=== PATIENT | female | born 1940 | race Caucasian/White ===

== ENCOUNTER 2019-02-12 15:36 | Inpatient (IN) | payer MEDICARE, OTHER ==
[2019-02-12 15:52] LABS: ADD MAN DIFF? NO
[2019-02-12 15:58] LABS: WHITE BLOOD COUNT 13.8 10^3/ul (4.8-10.8)
[2019-02-12 15:58] LABS: BASOPHILS % 0.2 % (0.0-2.0); EOSINOPHILS # 0.1 10^3/ul (0.0-0.5); EOSINOPHILS % 0.9 % (0.0-7.0); HEMATOCRIT 39.1 % (37.0-47.0); HEMOGLOBIN 12.2 g/dl (12.0-16.0); LYMPHOCYTES # 1.9 10^3/ul (0.8-2.9); LYMPHOCYTES % 13.9 % (15.0-51.0); MEAN CORPUSCULAR HEMOGLOBIN 27.7 pg (29.0-33.0); MEAN CORPUSCULAR HGB CONC 31.2 g/dl (32.0-37.0); MEAN CORPUSCULAR VOLUME 88.9 fl (82.0-101.0); MEAN PLATELET VOLUME 10.1 fl (7.4-10.4); MONOCYTE # 0.8 10^3/ul (0.3-0.9); NEUTROPHIL # 10.8 10^3/ul (1.6-7.5); NEUTROPHILS % 78.4 % (39.0-77.0); PLATELET COUNT 410 10^3/UL (140-415)
[2019-02-12] MEDS: KETOROLAC 15 MG INJ IV (16:03)
[2019-02-12] MEDS: LORAZEPAM 2 MG INJ IV (16:03)
[2019-02-12] MEDS: SOD CHLORIDE 0.9% 1,000 ML IV (16:04)
[2019-02-12 16:12] LABS: ADD UMIC NO; UR ASCORBIC ACID NEGATIVE (NEGATIVE); UR BACTERIA FEW /HPF (NONE SEEN); UR BILIRUBIN (Dip) NEGATIVE (NEGATIVE); UR BLOOD (Dip) NEGATIVE (NEGATIVE); UR CLARITY SLIGHTLY CLOUDY (CLEAR); UR COLOR AMBER (YELLOW); UR GLUCOSE (Dip) NEGATIVE (NEGATIVE); UR KETONES (Dip) NEGATIVE (NEGATIVE); UR LEUKOCYTE ESTERASE (Dip) NEGATIVE Leu/ul (NEGATIVE); UR NITRITE (Dip) NEGATIVE (NEGATIVE); UR RBC 1 /HPF (0-5); UR SPECIFIC GRAVITY (Dip) 1.017 (1.003-1.030); UR TOTAL PROTEIN (Dip) NEGATIVE (NEGATIVE); UR UROBILINOGEN (Dip) 2+ mg/dL (NEGATIVE); UR WBC 4 /HPF (0-5)
[2019-02-12 16:16] LABS: ALANINE AMINOTRANSFERASE 45 IU/L (13-69); ALBUMIN 3.5 g/dl (3.3-4.9); ALBUMIN/GLOBULIN RATIO 1.09; ALKALINE PHOSPHATASE 111 IU/L (42-121); ANION GAP 10 (5-13); ASPARTATE AMINO TRANSFERASE 65 IU/L (15-46); BILIRUBIN,INDIRECT 0.6 mg/dl (0-1.1); BILIRUBIN,TOTAL 0.6 mg/dl (0.2-1.3); BLOOD UREA NITROGEN 38 mg/dl (7-20); CALCIUM 8.6 mg/dl (8.4-10.2); CARBON DIOXIDE 30 mmol/L (21-31); CHLORIDE 98 mmol/L (97-110); CREATININE 0.98 mg/dl (0.44-1.00); GLUCOSE 174 mg/dl (70-220); LIPASE 206 U/L (23-300); POTASSIUM 3.6 mmol/L (3.5-5.1); SODIUM 138 mmol/L (135-144); TOTAL PROTEIN 6.7 g/dl (6.1-8.1)
[2019-02-12 16:18] LABS: INR 0.98; PROTIME 13.1 Sec (11.9-14.9)
[2019-02-12 16:19] LABS: PARTIAL THROMBOPLASTIN TIME 27.4 Sec (23.0-35.0)
[2019-02-12 16:25] LABS: B-TYPE NATRIURETIC PEPTIDE 2840 PG/ML (0-450)
[2019-02-12 16:27] LABS: TROPONIN-I < 0.012 ng/ml (0.000-0.120)
[2019-02-12] MEDS: ASPIRIN 81 MG TAB PO (18:17)
[2019-02-12] MEDS: ASPIRIN 300 MG SUPP PR (18:20)
[2019-02-12] MEDS ORDERED: traMADol 50 MG TAB PO (18:30)
[2019-02-12] MEDS ORDERED: NACL 0.9% 3 ML SYG IV (18:30)
[2019-02-12] MEDS ORDERED: DOCUSATE SODIUM 100 MG CAP PO (18:30)
[2019-02-12] MEDS ORDERED: NITROGLYCERIN (SL) 0.4 MG TAB SL (18:30)
[2019-02-12] MEDS ORDERED: ONDANSETRON 4 MG INJ IV (18:30)
[2019-02-12 19:29] LABS: HEMOGLOBIN A1C 5.3 % (0-5.9)
[2019-02-12 19:40] LABS: CREATINE KINASE 757 IU/L (23-200)
[2019-02-12 19:52] LABS: CK INDEX 1.6; TROPONIN-I < 0.012 ng/ml (0.000-0.120)
[2019-02-12] MEDS: QUETIAPINE 25 MG TAB PO (23:01)
[2019-02-12] MEDS: ESCITALOPRAM 10 MG TAB PO (23:01)
[2019-02-12] MEDS: FAMOTIDINE 20 MG TAB PO (23:03)
[2019-02-13 01:32] LABS: CREATINE KINASE 593 IU/L (23-200)
[2019-02-13 01:45] LABS: CK INDEX 1.4; CK-MB 8.21 ng/ml (0.0-2.4); TROPONIN-I < 0.012 ng/ml (0.000-0.120)
[2019-02-13 05:37] LABS: ADD MAN DIFF? NO
[2019-02-13 05:51] LABS: WHITE BLOOD COUNT 9.8 10^3/ul (4.8-10.8)
[2019-02-13 05:51] LABS: BASOPHILS % 0.3 % (0.0-2.0); EOSINOPHILS # 0.2 10^3/ul (0.0-0.5); EOSINOPHILS % 2.3 % (0.0-7.0); HEMOGLOBIN 9.7 g/dl (12.0-16.0); LYMPHOCYTES # 2.1 10^3/ul (0.8-2.9); LYMPHOCYTES % 21.4 % (15.0-51.0); MEAN CORPUSCULAR HGB CONC 32.3 g/dl (32.0-37.0); MEAN CORPUSCULAR VOLUME 86.7 fl (82.0-101.0); MEAN PLATELET VOLUME 10.9 fl (7.4-10.4); MONOCYTE # 0.9 10^3/ul (0.3-0.9); NEUTROPHIL # 6.5 10^3/ul (1.6-7.5); NEUTROPHILS % 66.6 % (39.0-77.0); PLATELET COUNT 325 10^3/UL (140-415); RED BLOOD COUNT 3.46 10^6/ul (4.20-5.40); RED CELL DISTRIBUTION WIDTH 13.1 % (11.5-14.5)
[2019-02-13 06:37] LABS: ANION GAP 4 (5-13); BLOOD UREA NITROGEN 30 mg/dl (7-20); CALCIUM 7.5 mg/dl (8.4-10.2); CARBON DIOXIDE 29 mmol/L (21-31); CHLORIDE 104 mmol/L (97-110); CREATININE 0.61 mg/dl (0.44-1.00); GLUCOSE 81 mg/dl (70-220); MAGNESIUM 1.9 mg/dl (1.7-2.5); SODIUM 137 mmol/L (135-144)
[2019-02-13 06:46] LABS: POTASSIUM 2.9 mmol/L (3.5-5.1)
[2019-02-13] MEDS: ENOXAPARIN 40 MG/0.4 ML SYG SC (07:59)
[2019-02-13] MEDS: FAMOTIDINE 20 MG TAB PO (09:00)
[2019-02-13] MEDS: ARIPIPRAZOLE 5 MG TAB PO (09:00)
[2019-02-13] MEDS: ATENOLOL 50 MG TAB PO (09:00)
[2019-02-13] MEDS: POTASSIUM CHLORIDE 100 ML IVPB ×3 (09:08→13:31)
[2019-02-13] MEDS: FUROSEMIDE 20 MG INJ IV (09:09)
[2019-02-13] MEDS: D5W-0.45 NACL + KCL 20 MEQ 1,000 ML IV (10:28)
[2019-02-13] MEDS ORDERED: PENDING SANTYL ORDER FOR WOUND CARE XX (11:00)
[2019-02-13] MEDS: MAGNESIUM SULFATE 2 GM/50 ML 50 ML IVPB (11:35)
[2019-02-13 15:30] LABS: POTASSIUM 3.8 mmol/L (3.5-5.1)
[2019-02-13] MEDS ORDERED: FENTAnyl 50 MCG/ML VIAL (15:40)
[2019-02-13] MEDS ORDERED: MIDAZOLAM 1 MG/ML 2 ML INJ (15:40)
[2019-02-13] MEDS ORDERED: ROPIVACAINE 0.5 % 30 ML VIAL (15:40)
[2019-02-13] MEDS ORDERED: PHENYLephrine (100 MCG/ML) 10ML SYG ×3 (15:40→17:00)
[2019-02-13] MEDS ORDERED: CEFAZOLIN 1 GM INJ ×2 (15:40→19:07)
[2019-02-13] MEDS ORDERED: PROPOFOL 100 ML (15:40)
[2019-02-13] MEDS: ACCU-CHEK XX ×2 (17:00→21:00)
[2019-02-13] MEDS ORDERED: ALBUMIN HUMAN 5% 500 ML (17:01)
[2019-02-13] MEDS ORDERED: HETASTARCH 6% NACL 500 ML (17:01)
[2019-02-13] MEDS ORDERED: DEXAMETHASONE 4 MG/ML 5 ML INJ (17:12)
[2019-02-13] MEDS ORDERED: ONDANSETRON 4 MG INJ (17:12)
[2019-02-13] MEDS ORDERED: METOCLOPRAMIDE 10 MG INJ (17:12)
[2019-02-13] MEDS: POLYMYXIN/BACITRACIN 1L IRRIG (17:17)
[2019-02-13] MEDS ORDERED: ALBUMIN HUMAN 5% 250 ML IV (17:30)
[2019-02-13] MEDS ORDERED: FENTAnyl 50 MCG/ML VIAL IV ×2 (17:30)
[2019-02-13] MEDS ORDERED: ACETAMINOPHEN 500 MG TAB PO (17:30)
[2019-02-13] MEDS ORDERED: DIPHENHYDRAMINE 50 MG INJ IV ×3 (17:30→20:00)
[2019-02-13] MEDS ORDERED: NALOXONE (0.4 MG/ML) INJ IV ×2 (17:30→20:00)
[2019-02-13] MEDS ORDERED: HYDROmorphONE 0.5 MG/0.5 ML SYG IV ×3 (17:30→20:00)
[2019-02-13] MEDS ORDERED: HYDROmorphONE 1 MG/5 ML IV SYRINGE IV ×2 (17:30)
[2019-02-13] MEDS ORDERED: hydrALAzine 20 MG INJ IV (17:30)
[2019-02-13] MEDS ORDERED: OXYCODONE/ACETAMINOPHEN (5/325) TAB PO (17:30)
[2019-02-13] MEDS ORDERED: MEPERIDINE 25 MG INJ IV (17:30)
[2019-02-13] MEDS ORDERED: EPHEDrine 25 MG/5 ML SYG IV (17:30)
[2019-02-13] MEDS ORDERED: LABETALOL HCL 20MG INJ IV (17:30)
[2019-02-13] MEDS ORDERED: ONDANSETRON 4 MG INJ IV ×2 (17:30)
[2019-02-13] MEDS ORDERED: NALBUPHINE HCL (10 MG/1 ML) INJ IV (17:30)
[2019-02-13] MEDS ORDERED: morphine 2 MG INJ IV ×2 (17:30)
[2019-02-13] MEDS ORDERED: TRANEXAMIC ACID 1GM/100ML(PMX) 100 ML (18:54)
[2019-02-13] MEDS ORDERED: oxyCODONE 5 MG TAB PO (20:00)
[2019-02-13] MEDS ORDERED: MAGNESIUM HYDROXIDE 30ML CUP PO (20:00)
[2019-02-13] MEDS ORDERED: NACL 0.9% 3 ML SYG IV (20:00)
[2019-02-13] MEDS ORDERED: NA PHOSPHATE/BIPHOS 133 ML ENEMA PR (20:00)
[2019-02-13] MEDS ORDERED: BISACODYL 10 MG SUPP PR (20:00)
[2019-02-13] MEDS: LACTATED RINGER'S 1,000 ML IV (20:30)
[2019-02-13] MEDS: DOCUSATE SODIUM 100 MG CAP PO (20:30)
[2019-02-13] MEDS: ESCITALOPRAM 10 MG TAB PO (21:40)
[2019-02-13] MEDS: QUETIAPINE 25 MG TAB PO (21:44)
[2019-02-13] MEDS: BALSAM PERU/CASTOR OIL 60 GM TUBE TOP (21:44)
[2019-02-13] MEDS: CEFAZOLIN 2 GM/50 ML (PMX) 50 ML IVPB (21:45)
[2019-02-13] MEDS: ACETAMINOPHEN 500 MG TAB PO (23:00)
[2019-02-14] MEDS: ACCU-CHEK XX ×4 (01:00→21:02)
[2019-02-14] MEDS: PANTOPRAZOLE (EC) 40 MG TAB PO (05:54)
[2019-02-14] MEDS: CEFAZOLIN 2 GM/50 ML (PMX) 50 ML IVPB ×2 (05:54→13:35)
[2019-02-14] MEDS: ACETAMINOPHEN 500 MG TAB PO ×3 (05:55→22:00)
[2019-02-14 06:12] LABS: ADD MAN DIFF? NO
[2019-02-14 06:26] LABS: WHITE BLOOD COUNT 8.9 10^3/ul (4.8-10.8)
[2019-02-14 06:26] LABS: HEMATOCRIT 27.5 % (37.0-47.0); HEMOGLOBIN 8.7 g/dl (12.0-16.0); LYMPHOCYTES # 0.8 10^3/ul (0.8-2.9); LYMPHOCYTES % 8.6 % (15.0-51.0); MEAN CORPUSCULAR HEMOGLOBIN 27.9 pg (29.0-33.0); MEAN CORPUSCULAR HGB CONC 31.6 g/dl (32.0-37.0); MEAN CORPUSCULAR VOLUME 88.1 fl (82.0-101.0); MEAN PLATELET VOLUME 10.9 fl (7.4-10.4); MONOCYTE # 0.4 10^3/ul (0.3-0.9); NEUTROPHIL # 7.7 10^3/ul (1.6-7.5); NEUTROPHILS % 86.8 % (39.0-77.0); PLATELET COUNT 293 10^3/UL (140-415); RED BLOOD COUNT 3.12 10^6/ul (4.20-5.40); RED CELL DISTRIBUTION WIDTH 13.2 % (11.5-14.5)
[2019-02-14 06:38] LABS: ALANINE AMINOTRANSFERASE 44 IU/L (13-69); ALBUMIN 2.5 g/dl (3.3-4.9); ALBUMIN/GLOBULIN RATIO 1.08; ALKALINE PHOSPHATASE 105 IU/L (42-121); ANION GAP 6 (5-13); ASPARTATE AMINO TRANSFERASE 59 IU/L (15-46); BILIRUBIN,INDIRECT 0.6 mg/dl (0-1.1); BILIRUBIN,TOTAL 0.6 mg/dl (0.2-1.3); BLOOD UREA NITROGEN 19 mg/dl (7-20); CALCIUM 7.4 mg/dl (8.4-10.2); CARBON DIOXIDE 26 mmol/L (21-31); CHLORIDE 109 mmol/L (97-110); CREATININE 0.48 mg/dl (0.44-1.00); GLUCOSE 103 mg/dl (70-220); POTASSIUM 3.8 mmol/L (3.5-5.1); SODIUM 141 mmol/L (135-144); TOTAL PROTEIN 4.8 g/dl (6.1-8.1)
[2019-02-14 06:44] LABS: INR 1.19; PROTIME 15.2 Sec (11.9-14.9); PT RATIO 1.2
[2019-02-14] MEDS: LACTATED RINGER'S 1,000 ML IV (09:00)
[2019-02-14] MEDS: ENOXAPARIN 40 MG/0.4 ML SYG SC (09:00)
[2019-02-14] MEDS: ATENOLOL 50 MG TAB PO (09:00)
[2019-02-14] MEDS: DOCUSATE SODIUM 100 MG CAP PO ×2 (09:15→20:58)
[2019-02-14] MEDS: FAMOTIDINE 20 MG TAB PO (09:17)
[2019-02-14] MEDS: ARIPIPRAZOLE 5 MG TAB PO (09:17)
[2019-02-14] MEDS: D5W-0.45 NACL + KCL 20 MEQ 1,000 ML IV (09:18)
[2019-02-14] MEDS: BALSAM PERU/CASTOR OIL 60 GM TUBE TOP ×2 (09:18→21:02)
[2019-02-14] MEDS ORDERED: ONDANSETRON 4 MG INJ IV (20:00)
[2019-02-14] MEDS: ESCITALOPRAM 10 MG TAB PO (20:58)
[2019-02-14] MEDS: QUETIAPINE 25 MG TAB PO (21:02)
[2019-02-14] MEDS: DAKINS 0.0125%(1/40) 473 ML SOLUTION TP (21:02)
[2019-02-15] MEDS: ACCU-CHEK XX ×4 (01:00→13:43)
[2019-02-15] MEDS: ACETAMINOPHEN 500 MG TAB PO ×3 (05:50→21:37)
[2019-02-15] MEDS: PANTOPRAZOLE (EC) 40 MG TAB PO (05:51)
[2019-02-15 05:53] LABS: ADD MAN DIFF? NO
[2019-02-15 06:00] LABS: BASOPHILS % 0.1 % (0.0-2.0); EOSINOPHILS # 0.1 10^3/ul (0.0-0.5); EOSINOPHILS % 1.3 % (0.0-7.0); HEMATOCRIT 25.4 % (37.0-47.0); HEMOGLOBIN 8.1 g/dl (12.0-16.0); LYMPHOCYTES # 2.5 10^3/ul (0.8-2.9); LYMPHOCYTES % 24.1 % (15.0-51.0); MEAN CORPUSCULAR HEMOGLOBIN 28.3 pg (29.0-33.0); MEAN CORPUSCULAR HGB CONC 31.9 g/dl (32.0-37.0); MEAN CORPUSCULAR VOLUME 88.8 fl (82.0-101.0); MEAN PLATELET VOLUME 10.4 fl (7.4-10.4); MONOCYTE # 0.9 10^3/ul (0.3-0.9); MONOCYTES % 8.7 % (0.0-11.0); NEUTROPHIL # 6.8 10^3/ul (1.6-7.5); NEUTROPHILS % 65.1 % (39.0-77.0); PLATELET COUNT 288 10^3/UL (140-415); RED BLOOD COUNT 2.86 10^6/ul (4.20-5.40); RED CELL DISTRIBUTION WIDTH 13.2 % (11.5-14.5)
[2019-02-15 06:00] LABS: WHITE BLOOD COUNT 10.4 10^3/ul (4.8-10.8)
[2019-02-15 06:25] LABS: INR 1.07; PT RATIO 1.1
[2019-02-15 06:31] LABS: ANION GAP 0 (5-13); BLOOD UREA NITROGEN 21 mg/dl (7-20); CALCIUM 7.5 mg/dl (8.4-10.2); CARBON DIOXIDE 29 mmol/L (21-31); CHLORIDE 110 mmol/L (97-110); GLUCOSE 88 mg/dl (70-220); POTASSIUM 3.6 mmol/L (3.5-5.1); SODIUM 139 mmol/L (135-144)
[2019-02-15] MEDS: DOCUSATE SODIUM 100 MG CAP PO ×2 (08:53→20:19)
[2019-02-15] MEDS: FUROSEMIDE 20 MG TAB PO (08:53)
[2019-02-15] MEDS: ATENOLOL 50 MG TAB PO (08:53)
[2019-02-15] MEDS: ARIPIPRAZOLE 5 MG TAB PO (08:54)
[2019-02-15] MEDS: POTASSIUM CHLORIDE (SR) 20 MEQ TAB PO (08:54)
[2019-02-15] MEDS: FAMOTIDINE 20 MG TAB PO (08:54)
[2019-02-15] MEDS: ENOXAPARIN 40 MG/0.4 ML SYG SC ×2 (08:55→09:00)
[2019-02-15] MEDS: DAKINS 0.0125%(1/40) 473 ML SOLUTION TP ×2 (09:01→20:20)
[2019-02-15] MEDS: BALSAM PERU/CASTOR OIL 60 GM TUBE TOP ×2 (09:02→20:20)
[2019-02-15] MEDS: oxyCODONE 5 MG TAB PO (09:42)
[2019-02-15] MEDS: D5W-0.45 NACL + KCL 20 MEQ 1,000 ML IV (10:28)
[2019-02-15] MEDS: QUETIAPINE 25 MG TAB PO (20:20)
[2019-02-15] MEDS: ESCITALOPRAM 10 MG TAB PO (20:20)
[2019-02-16] MEDS: PANTOPRAZOLE (EC) 40 MG TAB PO (05:58)
[2019-02-16] MEDS: ACETAMINOPHEN 500 MG TAB PO ×3 (05:58→21:34)
[2019-02-16 06:09] LABS: ADD MAN DIFF? NO
[2019-02-16 06:15] LABS: WHITE BLOOD COUNT 10.1 10^3/ul (4.8-10.8)
[2019-02-16 06:15] LABS: BASOPHILS % 0.2 % (0.0-2.0); EOSINOPHILS # 0.4 10^3/ul (0.0-0.5); EOSINOPHILS % 3.6 % (0.0-7.0); HEMATOCRIT 28.6 % (37.0-47.0); HEMOGLOBIN 8.9 g/dl (12.0-16.0); LYMPHOCYTES # 2.9 10^3/ul (0.8-2.9); LYMPHOCYTES % 28.8 % (15.0-51.0); MEAN CORPUSCULAR HEMOGLOBIN 27.6 pg (29.0-33.0); MEAN CORPUSCULAR HGB CONC 31.1 g/dl (32.0-37.0); MEAN CORPUSCULAR VOLUME 88.5 fl (82.0-101.0); MEAN PLATELET VOLUME 10.3 fl (7.4-10.4); MONOCYTES % 9.5 % (0.0-11.0); NEUTROPHIL # 5.7 10^3/ul (1.6-7.5); NEUTROPHILS % 56.9 % (39.0-77.0); PLATELET COUNT 335 10^3/UL (140-415); RED BLOOD COUNT 3.23 10^6/ul (4.20-5.40); RED CELL DISTRIBUTION WIDTH 13.6 % (11.5-14.5)
[2019-02-16 06:31] LABS: INR 0.97
[2019-02-16 06:45] LABS: B-TYPE NATRIURETIC PEPTIDE 4690 PG/ML (0-450)
[2019-02-16 06:52] LABS: ALANINE AMINOTRANSFERASE 38 IU/L (13-69); ALBUMIN 2.3 g/dl (3.3-4.9); ALBUMIN/GLOBULIN RATIO 0.95; ALKALINE PHOSPHATASE 87 IU/L (42-121); ANION GAP 1 (5-13); ASPARTATE AMINO TRANSFERASE 30 IU/L (15-46); BILIRUBIN,INDIRECT 0.5 mg/dl (0-1.1); BILIRUBIN,TOTAL 0.5 mg/dl (0.2-1.3); BLOOD UREA NITROGEN 16 mg/dl (7-20); CALCIUM 7.4 mg/dl (8.4-10.2); CARBON DIOXIDE 30 mmol/L (21-31); CHLORIDE 108 mmol/L (97-110); CREATININE 0.46 mg/dl (0.44-1.00); GLUCOSE 82 mg/dl (70-220); MAGNESIUM 1.7 mg/dl (1.7-2.5); POTASSIUM 4.3 mmol/L (3.5-5.1); SODIUM 139 mmol/L (135-144); TOTAL PROTEIN 4.7 g/dl (6.1-8.1)
[2019-02-16] MEDS: ENOXAPARIN 40 MG/0.4 ML SYG SC (08:21)
[2019-02-16] MEDS: ARIPIPRAZOLE 5 MG TAB PO (08:21)
[2019-02-16] MEDS: FAMOTIDINE 20 MG TAB PO (08:22)
[2019-02-16] MEDS: FUROSEMIDE 20 MG TAB PO (08:22)
[2019-02-16] MEDS: DOCUSATE SODIUM 100 MG CAP PO ×2 (08:22→21:35)
[2019-02-16] MEDS: ATENOLOL 50 MG TAB PO (08:22)
[2019-02-16] MEDS: DAKINS 0.0125%(1/40) 473 ML SOLUTION TP ×2 (08:23→21:35)
[2019-02-16] MEDS: BALSAM PERU/CASTOR OIL 60 GM TUBE TOP ×2 (08:23→21:36)
[2019-02-16] MEDS: oxyCODONE 5 MG TAB PO (10:54)
[2019-02-16] MEDS: SENNA/DOCUSATE NA (8.6MG/50MG) TAB PO (13:56)
[2019-02-16] MEDS: MAGNESIUM HYDROXIDE 30ML CUP PO (17:53)
[2019-02-16] MEDS: ESCITALOPRAM 10 MG TAB PO (21:34)
[2019-02-16] MEDS: QUETIAPINE 25 MG TAB PO (21:34)
[2019-02-17 05:31] LABS: INR 0.94; PROTIME 12.7 Sec (11.9-14.9)
[2019-02-17 05:44] LABS: ANION GAP 2 (5-13); BLOOD UREA NITROGEN 13 mg/dl (7-20); CALCIUM 7.4 mg/dl (8.4-10.2); CARBON DIOXIDE 30 mmol/L (21-31); CHLORIDE 107 mmol/L (97-110); CREATININE 0.47 mg/dl (0.44-1.00); GLUCOSE 89 mg/dl (70-220); POTASSIUM 3.9 mmol/L (3.5-5.1); SODIUM 139 mmol/L (135-144)
[2019-02-17] MEDS: ACETAMINOPHEN 500 MG TAB PO ×3 (06:45→21:14)
[2019-02-17] MEDS: PANTOPRAZOLE (EC) 40 MG TAB PO (06:45)
[2019-02-17] MEDS: ARIPIPRAZOLE 5 MG TAB PO (09:00)
[2019-02-17] MEDS: FAMOTIDINE 20 MG TAB PO (09:08)
[2019-02-17] MEDS: FUROSEMIDE 20 MG TAB PO (09:08)
[2019-02-17] MEDS: ATENOLOL 50 MG TAB PO (09:09)
[2019-02-17] MEDS: DAKINS 0.0125%(1/40) 473 ML SOLUTION TP ×2 (09:09→21:12)
[2019-02-17] MEDS: BALSAM PERU/CASTOR OIL 60 GM TUBE TOP ×2 (09:10→21:12)
[2019-02-17] MEDS: ENOXAPARIN 40 MG/0.4 ML SYG SC (09:11)
[2019-02-17] MEDS: QUETIAPINE 25 MG TAB PO (21:11)
[2019-02-17] MEDS: ESCITALOPRAM 10 MG TAB PO (21:11)
[2019-02-18] MEDS: ACETAMINOPHEN 500 MG TAB PO ×3 (05:31→20:42)
[2019-02-18] MEDS: PANTOPRAZOLE (EC) 40 MG TAB PO (05:31)
[2019-02-18 06:31] LABS: INR 0.94; PROTIME 12.7 Sec (11.9-14.9)
[2019-02-18 06:54] LABS: ANION GAP 2 (5-13); BLOOD UREA NITROGEN 11 mg/dl (7-20); CALCIUM 7.8 mg/dl (8.4-10.2); CARBON DIOXIDE 34 mmol/L (21-31); CHLORIDE 103 mmol/L (97-110); CREATININE 0.46 mg/dl (0.44-1.00); GLUCOSE 72 mg/dl (70-220); POTASSIUM 4.3 mmol/L (3.5-5.1); SODIUM 139 mmol/L (135-144)
[2019-02-18] MEDS: ARIPIPRAZOLE 5 MG TAB PO (08:59)
[2019-02-18] MEDS: FAMOTIDINE 20 MG TAB PO (09:00)
[2019-02-18] MEDS: FUROSEMIDE 20 MG TAB PO (09:00)
[2019-02-18] MEDS: ATENOLOL 50 MG TAB PO (09:00)
[2019-02-18] MEDS: ENOXAPARIN 40 MG/0.4 ML SYG SC (09:01)
[2019-02-18] MEDS: DAKINS 0.0125%(1/40) 473 ML SOLUTION TP ×2 (09:05→20:42)
[2019-02-18] MEDS: BALSAM PERU/CASTOR OIL 60 GM TUBE TOP ×2 (09:05→20:42)
[2019-02-18] MEDS: QUETIAPINE 25 MG TAB PO (20:42)
[2019-02-18] MEDS: ESCITALOPRAM 10 MG TAB PO (20:42)
[2019-02-19 05:19] LABS: ADD MAN DIFF? NO
[2019-02-19 05:26] LABS: BASOPHILS % 0.3 % (0.0-2.0); EOSINOPHILS # 0.5 10^3/ul (0.0-0.5); EOSINOPHILS % 3.8 % (0.0-7.0); HEMATOCRIT 32.3 % (37.0-47.0); HEMOGLOBIN 10.4 g/dl (12.0-16.0); LYMPHOCYTES # 2.1 10^3/ul (0.8-2.9); LYMPHOCYTES % 16.6 % (15.0-51.0); MEAN CORPUSCULAR HEMOGLOBIN 27.9 pg (29.0-33.0); MEAN CORPUSCULAR HGB CONC 32.2 g/dl (32.0-37.0); MEAN CORPUSCULAR VOLUME 86.6 fl (82.0-101.0); MEAN PLATELET VOLUME 9.7 fl (7.4-10.4); MONOCYTE # 0.9 10^3/ul (0.3-0.9); MONOCYTES % 6.8 % (0.0-11.0); NEUTROPHIL # 8.9 10^3/ul (1.6-7.5); NEUTROPHILS % 71.4 % (39.0-77.0); PLATELET COUNT 458 10^3/UL (140-415); RED BLOOD COUNT 3.73 10^6/ul (4.20-5.40); RED CELL DISTRIBUTION WIDTH 13.6 % (11.5-14.5)
[2019-02-19 05:26] LABS: WHITE BLOOD COUNT 12.5 10^3/ul (4.8-10.8)
[2019-02-19 05:42] LABS: MAGNESIUM 1.8 mg/dl (1.7-2.5)
[2019-02-19 05:46] LABS: ANION GAP 4 (5-13); BLOOD UREA NITROGEN 11 mg/dl (7-20); CALCIUM 7.9 mg/dl (8.4-10.2); CARBON DIOXIDE 31 mmol/L (21-31); CHLORIDE 102 mmol/L (97-110); CREATININE 0.48 mg/dl (0.44-1.00); GLUCOSE 82 mg/dl (70-220); POTASSIUM 3.5 mmol/L (3.5-5.1); SODIUM 137 mmol/L (135-144)
[2019-02-19] MEDS: PANTOPRAZOLE (EC) 40 MG TAB PO (07:06)
[2019-02-19] MEDS: ACETAMINOPHEN 500 MG TAB PO ×3 (07:07→21:20)
[2019-02-19] MEDS: ATENOLOL 50 MG TAB PO (09:30)
[2019-02-19] MEDS: ARIPIPRAZOLE 5 MG TAB PO (09:30)
[2019-02-19] MEDS: FAMOTIDINE 20 MG TAB PO (09:30)
[2019-02-19] MEDS: FUROSEMIDE 20 MG TAB PO (09:30)
[2019-02-19] MEDS: BALSAM PERU/CASTOR OIL 60 GM TUBE TOP ×2 (09:38→20:33)
[2019-02-19] MEDS: DAKINS 0.0125%(1/40) 473 ML SOLUTION TP ×2 (09:38→20:32)
[2019-02-19] MEDS: ENOXAPARIN 40 MG/0.4 ML SYG SC (09:39)
[2019-02-19 13:07] LABS: ADD UMIC YES; UR ASCORBIC ACID NEGATIVE (NEGATIVE); UR BILIRUBIN (Dip) NEGATIVE (NEGATIVE); UR BLOOD (Dip) 1+ mg/dL (NEGATIVE); UR CLARITY CLEAR (CLEAR); UR COLOR YELLOW (YELLOW); UR GLUCOSE (Dip) NEGATIVE (NEGATIVE); UR KETONES (Dip) NEGATIVE (NEGATIVE); UR LEUKOCYTE ESTERASE (Dip) 2+ Leu/ul (NEGATIVE); UR NITRITE (Dip) NEGATIVE (NEGATIVE); UR NONSQUAMOUS EPITHELIAL CELL <1 /HPF (NONE SEEN); UR RBC 5 /HPF (0-5); UR SPECIFIC GRAVITY (Dip) 1.004 (1.003-1.030); UR TOTAL PROTEIN (Dip) NEGATIVE (NEGATIVE); UR UROBILINOGEN (Dip) NEGATIVE (NEGATIVE); UR WBC 20 /HPF (0-5)
[2019-02-19] MEDS: QUETIAPINE 25 MG TAB PO (20:32)
[2019-02-19] MEDS: ESCITALOPRAM 10 MG TAB PO (20:32)
[2019-02-19] MEDS: ACETAMINOPHEN 325 MG TAB PO (21:17)
[2019-02-20 05:40] LABS: ADD MAN DIFF? NO
[2019-02-20 05:48] LABS: BASOPHILS % 0.2 % (0.0-2.0); EOSINOPHILS # 0.4 10^3/ul (0.0-0.5); EOSINOPHILS % 3.2 % (0.0-7.0); HEMOGLOBIN 10.7 g/dl (12.0-16.0); LYMPHOCYTES # 2.7 10^3/ul (0.8-2.9); LYMPHOCYTES % 20.9 % (15.0-51.0); MEAN CORPUSCULAR HEMOGLOBIN 27.9 pg (29.0-33.0); MEAN CORPUSCULAR HGB CONC 31.5 g/dl (32.0-37.0); MEAN CORPUSCULAR VOLUME 88.5 fl (82.0-101.0); MEAN PLATELET VOLUME 9.7 fl (7.4-10.4); MONOCYTES % 7.7 % (0.0-11.0); NEUTROPHIL # 8.4 10^3/ul (1.6-7.5); NEUTROPHILS % 66.2 % (39.0-77.0); PLATELET COUNT 461 10^3/UL (140-415); RED BLOOD COUNT 3.84 10^6/ul (4.20-5.40); RED CELL DISTRIBUTION WIDTH 13.9 % (11.5-14.5)
[2019-02-20 05:48] LABS: WHITE BLOOD COUNT 12.7 10^3/ul (4.8-10.8)
[2019-02-20 06:25] LABS: ANION GAP 3 (5-13); BLOOD UREA NITROGEN 13 mg/dl (7-20); CALCIUM 7.9 mg/dl (8.4-10.2); CARBON DIOXIDE 35 mmol/L (21-31); CHLORIDE 101 mmol/L (97-110); CREATININE 0.53 mg/dl (0.44-1.00); GLUCOSE 87 mg/dl (70-220); POTASSIUM 3.5 mmol/L (3.5-5.1); SODIUM 139 mmol/L (135-144)
[2019-02-20 06:26] LABS: PHOSPHORUS 3.8 mg/dl (2.5-4.9)
[2019-02-20] MEDS: PANTOPRAZOLE (EC) 40 MG TAB PO (07:04)
[2019-02-20] MEDS: ACETAMINOPHEN 500 MG TAB PO ×3 (07:04→21:17)
[2019-02-20] MEDS: FAMOTIDINE 20 MG TAB PO (09:36)
[2019-02-20] MEDS: FUROSEMIDE 20 MG TAB PO (09:36)
[2019-02-20] MEDS: ARIPIPRAZOLE 5 MG TAB PO (09:36)
[2019-02-20] MEDS: ATENOLOL 50 MG TAB PO (09:37)
[2019-02-20] MEDS: ENOXAPARIN 40 MG/0.4 ML SYG SC (09:38)
[2019-02-20] MEDS: DAKINS 0.0125%(1/40) 473 ML SOLUTION TP ×2 (13:14→20:37)
[2019-02-20] MEDS: BALSAM PERU/CASTOR OIL 60 GM TUBE TOP ×2 (13:14→20:37)
[2019-02-20] MEDS: CIPROFLOXACIN 400MG/D5W 200 ML IVPB ×2 (14:07→20:36)
[2019-02-20] MEDS: ESCITALOPRAM 10 MG TAB PO (20:37)
[2019-02-20] MEDS: QUETIAPINE 25 MG TAB PO (20:37)
[2019-02-21] MEDS: ACETAMINOPHEN 500 MG TAB PO ×3 (05:20→21:43)
[2019-02-21] MEDS: PANTOPRAZOLE (EC) 40 MG TAB PO (05:20)
[2019-02-21 05:23] LABS: ADD MAN DIFF? NO
[2019-02-21 05:33] LABS: BASOPHIL # 0.1 10^3/ul (0.0-0.1); BASOPHILS % 0.4 % (0.0-2.0); EOSINOPHILS # 0.4 10^3/ul (0.0-0.5); EOSINOPHILS % 3.3 % (0.0-7.0); HEMATOCRIT 31.9 % (37.0-47.0); LYMPHOCYTES # 2.6 10^3/ul (0.8-2.9); LYMPHOCYTES % 21.7 % (15.0-51.0); MEAN CORPUSCULAR HEMOGLOBIN 28.3 pg (29.0-33.0); MEAN CORPUSCULAR HGB CONC 31.3 g/dl (32.0-37.0); MEAN CORPUSCULAR VOLUME 90.4 fl (82.0-101.0); MEAN PLATELET VOLUME 9.6 fl (7.4-10.4); MONOCYTE # 0.8 10^3/ul (0.3-0.9); MONOCYTES % 6.5 % (0.0-11.0); NEUTROPHIL # 7.9 10^3/ul (1.6-7.5); NEUTROPHILS % 66.2 % (39.0-77.0); PLATELET COUNT 411 10^3/UL (140-415); RED BLOOD COUNT 3.53 10^6/ul (4.20-5.40); RED CELL DISTRIBUTION WIDTH 14.3 % (11.5-14.5)
[2019-02-21 05:33] LABS: WHITE BLOOD COUNT 11.9 10^3/ul (4.8-10.8)
[2019-02-21 05:41] LABS: ANION GAP 3 (5-13); BLOOD UREA NITROGEN 12 mg/dl (7-20); CARBON DIOXIDE 33 mmol/L (21-31); CHLORIDE 102 mmol/L (97-110); CREATININE 0.57 mg/dl (0.44-1.00); GLUCOSE 78 mg/dl (70-220); MAGNESIUM 1.9 mg/dl (1.7-2.5); PHOSPHORUS 3.8 mg/dl (2.5-4.9); POTASSIUM 3.7 mmol/L (3.5-5.1); SODIUM 138 mmol/L (135-144)
[2019-02-21] MEDS: CIPROFLOXACIN 400MG/D5W 200 ML IVPB ×2 (08:08→21:37)
[2019-02-21] MEDS: ATENOLOL 50 MG TAB PO (08:09)
[2019-02-21] MEDS: DAKINS 0.0125%(1/40) 473 ML SOLUTION TP ×2 (08:10→21:38)
[2019-02-21] MEDS: BALSAM PERU/CASTOR OIL 60 GM TUBE TOP ×2 (08:10→21:38)
[2019-02-21] MEDS: FUROSEMIDE 20 MG TAB PO (08:10)
[2019-02-21] MEDS: FAMOTIDINE 20 MG TAB PO (08:10)
[2019-02-21] MEDS: ARIPIPRAZOLE 5 MG TAB PO (08:10)
[2019-02-21] MEDS: ENOXAPARIN 40 MG/0.4 ML SYG SC (08:11)
[2019-02-21] MEDS: ESCITALOPRAM 10 MG TAB PO (21:37)
[2019-02-21] MEDS: QUETIAPINE 25 MG TAB PO (21:38)
[2019-02-22 05:49] LABS: ADD MAN DIFF? NO
[2019-02-22 06:04] LABS: BASOPHILS % 0.3 % (0.0-2.0); EOSINOPHILS # 0.4 10^3/ul (0.0-0.5); EOSINOPHILS % 3.8 % (0.0-7.0); HEMATOCRIT 32.4 % (37.0-47.0); HEMOGLOBIN 10.1 g/dl (12.0-16.0); LYMPHOCYTES # 2.8 10^3/ul (0.8-2.9); LYMPHOCYTES % 27.2 % (15.0-51.0); MEAN CORPUSCULAR HEMOGLOBIN 28.4 pg (29.0-33.0); MEAN CORPUSCULAR HGB CONC 31.2 g/dl (32.0-37.0); MEAN PLATELET VOLUME 9.5 fl (7.4-10.4); MONOCYTE # 0.9 10^3/ul (0.3-0.9); MONOCYTES % 8.8 % (0.0-11.0); NEUTROPHIL # 5.9 10^3/ul (1.6-7.5); PLATELET COUNT 428 10^3/UL (140-415); RED BLOOD COUNT 3.56 10^6/ul (4.20-5.40); RED CELL DISTRIBUTION WIDTH 14.6 % (11.5-14.5)
[2019-02-22 06:04] LABS: WHITE BLOOD COUNT 10.2 10^3/ul (4.8-10.8)
[2019-02-22 06:21] LABS: ANION GAP 5 (5-13); BLOOD UREA NITROGEN 14 mg/dl (7-20); CARBON DIOXIDE 32 mmol/L (21-31); CHLORIDE 100 mmol/L (97-110); CREATININE 0.59 mg/dl (0.44-1.00); GLUCOSE 90 mg/dl (70-220); MAGNESIUM 1.8 mg/dl (1.7-2.5); POTASSIUM 3.6 mmol/L (3.5-5.1); SODIUM 137 mmol/L (135-144)
[2019-02-22] MEDS: PANTOPRAZOLE (EC) 40 MG TAB PO (06:58)
[2019-02-22] MEDS: ACETAMINOPHEN 500 MG TAB PO ×3 (06:58→21:22)
[2019-02-22] MEDS: ENOXAPARIN 40 MG/0.4 ML SYG SC (09:35)
[2019-02-22] MEDS: POTASSIUM CHLORIDE (SR) 10 MEQ TAB PO (09:37)
[2019-02-22] MEDS: MAGNESIUM SULFATE 2 GM/50 ML 50 ML IVPB (09:37)
[2019-02-22] MEDS: CEPHALEXIN 500 MG CAP PO ×2 (09:37→21:21)
[2019-02-22] MEDS: ARIPIPRAZOLE 5 MG TAB PO (09:37)
[2019-02-22] MEDS: FAMOTIDINE 20 MG TAB PO (09:38)
[2019-02-22] MEDS: FUROSEMIDE 20 MG TAB PO (09:38)
[2019-02-22] MEDS: DAKINS 0.0125%(1/40) 473 ML SOLUTION TP ×2 (09:39→21:23)
[2019-02-22] MEDS: BALSAM PERU/CASTOR OIL 60 GM TUBE TOP ×2 (09:39→21:23)
[2019-02-22] MEDS: ATENOLOL 50 MG TAB PO (09:39)
[2019-02-22] MEDS: oxyCODONE 5 MG TAB PO (13:28)
[2019-02-22] MEDS: QUETIAPINE 25 MG TAB PO (21:21)
[2019-02-22] MEDS: ESCITALOPRAM 10 MG TAB PO (21:22)
[2019-02-23 05:37] LABS: ADD MAN DIFF? NO
[2019-02-23 05:42] LABS: BASOPHIL # 0.1 10^3/ul (0.0-0.1); BASOPHILS % 0.4 % (0.0-2.0); EOSINOPHILS # 0.2 10^3/ul (0.0-0.5); HEMATOCRIT 33.9 % (37.0-47.0); HEMOGLOBIN 10.5 g/dl (12.0-16.0); LYMPHOCYTES # 2.4 10^3/ul (0.8-2.9); LYMPHOCYTES % 19.6 % (15.0-51.0); MEAN CORPUSCULAR HEMOGLOBIN 27.9 pg (29.0-33.0); MEAN CORPUSCULAR VOLUME 89.9 fl (82.0-101.0); MEAN PLATELET VOLUME 9.6 fl (7.4-10.4); MONOCYTE # 0.9 10^3/ul (0.3-0.9); MONOCYTES % 7.5 % (0.0-11.0); NEUTROPHIL # 8.4 10^3/ul (1.6-7.5); NEUTROPHILS % 68.9 % (39.0-77.0); PLATELET COUNT 461 10^3/UL (140-415); RED BLOOD COUNT 3.77 10^6/ul (4.20-5.40); RED CELL DISTRIBUTION WIDTH 14.8 % (11.5-14.5)
[2019-02-23 05:42] LABS: WHITE BLOOD COUNT 12.2 10^3/ul (4.8-10.8)
[2019-02-23 06:14] LABS: ANION GAP 3 (5-13); BLOOD UREA NITROGEN 12 mg/dl (7-20); CALCIUM 8.2 mg/dl (8.4-10.2); CARBON DIOXIDE 33 mmol/L (21-31); CHLORIDE 102 mmol/L (97-110); CREATININE 0.52 mg/dl (0.44-1.00); GLUCOSE 94 mg/dl (70-220); MAGNESIUM 2.1 mg/dl (1.7-2.5); POTASSIUM 3.7 mmol/L (3.5-5.1); SODIUM 138 mmol/L (135-144)
[2019-02-23] MEDS: PANTOPRAZOLE (EC) 40 MG TAB PO (06:34)
[2019-02-23] MEDS: ACETAMINOPHEN 500 MG TAB PO ×2 (06:34→14:43)
[2019-02-23] MEDS: ARIPIPRAZOLE 5 MG TAB PO (09:54)
[2019-02-23] MEDS: FAMOTIDINE 20 MG TAB PO (09:54)
[2019-02-23] MEDS: CIPROFLOXACIN 500 MG TAB PO (09:54)
[2019-02-23] MEDS: DAKINS 0.0125%(1/40) 473 ML SOLUTION TP (09:55)
[2019-02-23] MEDS: ATENOLOL 50 MG TAB PO (09:55)
[2019-02-23] MEDS: BALSAM PERU/CASTOR OIL 60 GM TUBE TOP (09:55)
[2019-02-23] MEDS: FUROSEMIDE 20 MG TAB PO (09:55)
[2019-02-23] MEDS: ENOXAPARIN 40 MG/0.4 ML SYG SC (09:59)
== END 2019-02-23 18:00 | DRG 480 ==
LOC: MS1 02-17 00:53 → E/R 15:36 → 6WM 17:40
PROC: 0QS706Z Reposition Left Upper Femur with Intramedullary Internal Fixation Device, Open Approach (ICD-10-PCS; principal; 2019-02-13 15:53)
DX: S72.142A Displaced intertrochanteric fracture of left femur, initial encounter for closed fracture (principal); G93.41 Metabolic encephalopathy; I50.33 Acute on chronic diastolic (congestive) heart failure; L97.429 Non-pressure chronic ulcer of left heel and midfoot with unspecified severity; I11.0 Hypertensive heart disease with heart failure; F03.90 Unspecified dementia, unspecified severity, without behavioral disturbance, psychotic disturbance, mood disturbance, and anxiety; E87.6 Hypokalemia; F02.80 Dementia in other diseases classified elsewhere, unspecified severity, without behavioral disturbance, psychotic disturbance, mood disturbance, and anxiety; R13.10 Dysphagia, unspecified; R26.9 Unspecified abnormalities of gait and mobility; R07.9 Chest pain, unspecified
CPT/HCPCS: 36415; 70450; 71045; 72170; 73530; 73550; 80048; 80053; 81001; 81003; 82550; 82553; 82962; 83036; 83690; 83735; 83880; 84100; 84132; 84484; 85025; 85610; 85730; 86850; 86900; 86901; 87086; 92526; 92610; 93005; 93306; 93922; 93970; 96374; 96375; 97110; 97162; 97167; 97530; 97535; 99285-25